=== PATIENT | male | born 1940 | race Caucasian/White ===

== ENCOUNTER 2017-08-11 08:45 | Day surgery (SDC) | payer MEDICARE ==
[2017-08-11] MEDS ORDERED: Lactated Ringer's 500 ML IV ONE (09:18)
[2017-08-11] MEDS ORDERED: Propofol 10 mg/ml Inj (20 ML) ONE (10:51)
[2017-08-11] MEDS ORDERED: Lidocaine 2% MPF (5 ml) Inj ONE (10:52)
[2017-08-11 12:18] VITALS: BP 132/75; PULSE 78; RESP 16; TEMP 97.5; O2SAT 100
== END 2017-08-11 10:30 | disposition home or self-care (01) ==
LOC: H.ENDO 08:45
PROVIDERS: ATTEND Internal Medicine Gastroenterology
DX: Z12.11 Encounter for screening for malignant neoplasm of colon (principal); D64.9 Anemia, unspecified; N40.0 Benign prostatic hyperplasia without lower urinary tract symptoms; E78.5 Hyperlipidemia, unspecified; I10 Essential (primary) hypertension; K29.80 Duodenitis without bleeding; K64.8 Other hemorrhoids; K29.60 Other gastritis without bleeding; K64.4 Residual hemorrhoidal skin tags; K63.5 Polyp of colon; K44.9 Diaphragmatic hernia without obstruction or gangrene; K27.9 Peptic ulcer, site unspecified, unspecified as acute or chronic, without hemorrhage or perforation; Z80.0 Family history of malignant neoplasm of digestive organs; Z80.9 Family history of malignant neoplasm, unspecified
CPT/HCPCS: 45378; J2704; J7120